=== PATIENT | male | born 1950 | race Caucasian/White ===

== ENCOUNTER 2020-04-11 09:30 | Observation (INO) ==
[2020-04-11] MEDS ORDERED: SODIUM CHLORIDE 0.9% 1,000 ML IV STA ×3 (09:54→11:15)
[2020-04-11] MEDS ORDERED: LOPERAMIDE 2 MG CAPSULE PO STA (09:54)
[2020-04-11] MEDS ORDERED: ONDANSETRON 4 MG/2 ML VIAL IV STA (09:54)
[2020-04-11 10:36] LABS: Basophils % 0.3 % (0.0-0.8); Eosinophils # 0.1 10*3/uL (0.0-0.87); Eosinophils % 0.9 % (0.00-10.9); Hematocrit 47.8 VOL% (42.0-52.0); Hemoglobin 15.5 GM/DL (14.0-18.0); Immature Granulocytes % 0.4 %; Immature Granulocytes Absolute 0.05 #; Lymphocytes # 1.3 10*3/uL (1.4-4.0); Lymphocytes % 9.7 % (21.2-54.2); Mean Corpuscular HGB Conc 32.4 GM/DL (32-36); Mean Corpuscular Volume 85.7 FL (87-102); Mean Platelet Volume 9.9 FL (9.6-12.0); Monocytes % 4.8 % (1.7-12.7); Neutrophils % 83.9 % (38.7-73.9); Platelet Count 150 T/CUMM (130-400); Red Blood Count 5.58 MC/CUMM (3.8-5.5); White Blood Count 13.3 T/CUMM (4-12)
[2020-04-11 10:55] LABS: Albumin 3.6 G/DL (3.4-5.0); Bilirubin,Total 1.1 MG/DL (0.2-1.0); Calcium 8.8 MG/DL (8.5-10.1); Osmolality,Calculated 272.2 MOS/KG (273-304); Total Protein 7.8 G/DL (6.4-8.3)
[2020-04-11] MEDS ORDERED: DEXTROSE 50% 25 GM/50 ML VIAL IV PRN (12:03)
[2020-04-11] MEDS ORDERED: ONDANSETRON 4 MG/2 ML VIAL IV PRN (12:03)
[2020-04-11] MEDS ORDERED: GLUCAGON 1 MG VIAL IM PRN (12:03)
[2020-04-11] MEDS: PANTOPRAZOLE 40 MG VIAL IV SCH (15:03)
[2020-04-11] MEDS: CIPROFLOXACIN INJ 400 MG in PREMIX 1 EACH IV SCH (15:57)
[2020-04-11 16:37] LABS: Ferritin 226.8 ng/ml (26-388)
[2020-04-11] MEDS ORDERED: CYCLOBENZAPRINE 10 MG TABLET PO PRN (16:37)
[2020-04-11] MEDS: metroNIDAZOLE INJ 500 MG in PREMIX 1 EACH IV SCH (17:35)
[2020-04-11] MEDS: SODIUM CHLORIDE 0.9% 1,000 ML IV SCH ×2 (18:37→20:55)
[2020-04-11 18:46] LABS: Bacteria,Urine Occasional /HPF (Few); Bilirubin,Urine Negative (Negative); Blood, Urine Moderate mg/dL (Negative); Glucose,Urine (UA) 50 mg/dL (Negative); Hyaline Casts,Urine 4 /LPF (0-3); Ketones,Urine Negative (Negative); Mucus,Urine Moderate /LPF (Occasional); Nitrite,Urine Negative (Negative); Protein,Urine Negative; RBC,Urine <1 /HPF (0-4); Squamous Epithelial Cell,Urine Occasional /HPF (0-10); Urine Appearance Slightly Hazy (Clear); Urine Color Yellow (Yellow); Urine Specific Gravity 1.018 (1.001-1.035); Urine Urobilinogen < 2.0 EU/DL (0.2-1.0)
[2020-04-11] MEDS: LOSARTAN 50 MG TABLET PO SCH (20:55)
[2020-04-11] MEDS: ACETAMINOPHEN 325 MG TABLET PO PRN (20:55)
[2020-04-11] MEDS: APIXABAN 5 MG TABLET PO SCH (20:55)
[2020-04-12] MEDS: metroNIDAZOLE INJ 500 MG in PREMIX 1 EACH IV SCH ×3 (01:15→17:03)
[2020-04-12] MEDS: SODIUM CHLORIDE 0.9% 1,000 ML IV SCH ×3 (04:20→21:28)
[2020-04-12] MEDS: CIPROFLOXACIN INJ 400 MG in PREMIX 1 EACH IV SCH ×2 (04:20→15:44)
[2020-04-12 06:26] LABS: Basophils % 0.2 % (0.0-0.8); Hemoglobin 13.7 GM/DL (14.0-18.0); Immature Granulocytes % 0.4 %; Immature Granulocytes Absolute 0.04 #; Lymphocytes # 0.9 10*3/uL (1.4-4.0); Lymphocytes % 8.3 % (21.2-54.2); Mean Corpuscular HGB Conc 32.6 GM/DL (32-36); Mean Corpuscular Volume 85.5 FL (87-102); Mean Platelet Volume 10.1 FL (9.6-12.0); Monocytes % 3.2 % (1.7-12.7); Neutrophils % 87.9 % (38.7-73.9); Platelet Count 117 T/CUMM (130-400); Red Blood Count 4.91 MC/CUMM (3.8-5.5); White Blood Count 10.3 T/CUMM (4-12)
[2020-04-12 06:54] LABS: Albumin 2.9 G/DL (3.4-5.0); Bilirubin,Total 0.7 MG/DL (0.2-1.0); Calcium 8.2 MG/DL (8.5-10.1); Total Protein 6.5 G/DL (6.4-8.3)
[2020-04-12] MEDS: APIXABAN 5 MG TABLET PO SCH ×2 (09:25→21:29)
[2020-04-12] MEDS: LOSARTAN 50 MG TABLET PO SCH ×2 (09:25→21:29)
[2020-04-12] MEDS: predniSONE 10 MG TABLET PO SCH (09:27)
[2020-04-12] MEDS: ACETAMINOPHEN 325 MG TABLET PO PRN (09:27)
[2020-04-12] MEDS: PANTOPRAZOLE 40 MG VIAL IV SCH (09:27)
[2020-04-13] MEDS: metroNIDAZOLE INJ 500 MG in PREMIX 1 EACH IV SCH ×2 (01:06→08:29)
[2020-04-13] MEDS: CIPROFLOXACIN INJ 400 MG in PREMIX 1 EACH IV SCH (04:32)
[2020-04-13] MEDS: SODIUM CHLORIDE 0.9% 1,000 ML IV SCH ×3 (08:28→22:30)
[2020-04-13] MEDS: PANTOPRAZOLE 40 MG VIAL IV SCH (08:29)
[2020-04-13] MEDS: LOSARTAN 50 MG TABLET PO SCH ×2 (08:29→20:34)
[2020-04-13] MEDS: APIXABAN 5 MG TABLET PO SCH (08:29)
[2020-04-13] MEDS: predniSONE 10 MG TABLET PO SCH (08:29)
[2020-04-13 09:32] LABS: Calcium 8.2 MG/DL (8.5-10.1); Osmolality,Calculated 277.7 MOS/KG (273-304)
[2020-04-13 10:33] LABS: Basophils % 0.2 % (0.0-0.8); Eosinophils # 0.1 10*3/uL (0.0-0.87); Eosinophils % 0.6 % (0.00-10.9); Hematocrit 39.6 VOL% (42.0-52.0); Hemoglobin 12.9 GM/DL (14.0-18.0); Immature Granulocytes % 0.6 %; Immature Granulocytes Absolute 0.05 #; Lymphocytes % 11.1 % (21.2-54.2); Mean Corpuscular HGB Conc 32.6 GM/DL (32-36); Mean Corpuscular Volume 84.8 FL (87-102); Mean Platelet Volume 10.1 FL (9.6-12.0); Monocytes % 5.1 % (1.7-12.7); Neutrophils % 82.4 % (38.7-73.9); Platelet Count 123 T/CUMM (130-400); Red Blood Count 4.67 MC/CUMM (3.8-5.5); Red Cell Distribution Width 14.6 % (9.3-17.3); White Blood Count 8.8 T/CUMM (4-12)
[2020-04-13] MEDS: CIPROFLOXACIN 500 MG TABLET PO SCH (20:34)
[2020-04-13] MEDS: metroNIDAZOLE 500 MG TABLET PO SCH (20:34)
[2020-04-14 08:15] VITALS: BP 140/74
[2020-04-14 08:44] LABS: Basophils % 0.2 % (0.0-0.8); Eosinophils # 0.1 10*3/uL (0.0-0.87); Hemoglobin 13.2 GM/DL (14.0-18.0); Immature Granulocytes % 0.7 %; Immature Granulocytes Absolute 0.06 #; Lymphocytes # 1.8 10*3/uL (1.4-4.0); Lymphocytes % 22.1 % (21.2-54.2); Mean Corpuscular Volume 85.3 FL (87-102); Mean Platelet Volume 9.8 FL (9.6-12.0); Platelet Count 125 T/CUMM (130-400); Red Blood Count 4.69 MC/CUMM (3.8-5.5); Red Cell Distribution Width 15.1 % (9.3-17.3); White Blood Count 8.2 T/CUMM (4-12)
[2020-04-14 09:08] LABS: Calcium 8.1 MG/DL (8.5-10.1); Osmolality,Calculated 281.4 MOS/KG (273-304)
[2020-04-14] MEDS: LOSARTAN 50 MG TABLET PO SCH (09:09)
[2020-04-14] MEDS: metroNIDAZOLE 500 MG TABLET PO SCH (09:09)
[2020-04-14] MEDS: CIPROFLOXACIN 500 MG TABLET PO SCH (09:09)
[2020-04-14] MEDS: PANTOPRAZOLE 40 MG VIAL IV SCH (09:09)
[2020-04-14] MEDS: predniSONE 10 MG TABLET PO SCH (09:09)
[2020-04-14] MEDS: SODIUM CHLORIDE 0.9% 1,000 ML IV SCH (11:41)
[2020-04-22] MEDS ORDERED: predniSONE 5 MG TABLET PO SCH (09:00)
== END 2020-04-14 11:48 | disposition home or self-care (01) ==
LOC: N.ED 09:30 → N.EDINP 09:30 → SUATTDRO 12:03 → N.TELEN 14:10
PROVIDERS: ADMIT Internal Medicine; ATTEND Internal Medicine

== ENCOUNTER 2022-07-21 00:03 | Inpatient (IN) ==
[2022-07-21 00:40] LABS: Basophils # 0.1 10*3/uL (0.0-0.2); Basophils % 0.8 % (0.0-0.8); Eosinophils # 0.2 10*3/uL (0.0-0.87); Eosinophils % 3.7 % (0.00-10.9); Hematocrit 39.4 VOL% (42.0-52.0); Hemoglobin 13.6 GM/DL (14.0-18.0); Immature Granulocytes % 0.3 %; Immature Granulocytes Absolute 0.02 #; Lymphocytes # 2.4 10*3/uL (1.4-4.0); Lymphocytes % 38.8 % (21.2-54.2); Mean Corpuscular HGB Conc 34.5 GM/DL (32-36); Mean Corpuscular Volume 83.7 FL (87-102); Mean Platelet Volume 10.5 FL (9.6-12.0); Monocytes # 0.4 10*3/uL (0.11-0.8); Monocytes % 6.4 % (1.7-12.7); Platelet Count 160 T/CUMM (130-400); Red Blood Count 4.71 MC/CUMM (3.8-5.5); Red Cell Distribution Width 14.6 % (9.3-17.3); White Blood Count 6.3 T/CUMM (4-12)
[2022-07-21 00:52] LABS: PT Patient Result 11.2 SECS (10.1-12.1); Partial Thromboplastin Time 24.6 SECS (23.7-32.9)
[2022-07-21 01:17] LABS: Albumin 3.8 G/DL (3.4-5.0); Bilirubin,Total 0.4 MG/DL (0.20-1.00); Osmolality,Calculated 287.4 MOS/KG (273-304); Potassium 3.3 MMOL/L (3.5-5.1); Total Protein 7.1 G/DL (6.4-8.2)
[2022-07-21] MEDS ORDERED: SODIUM CHLORIDE 0.9% 500 ML IV STA (01:43)
[2022-07-21] MEDS ORDERED: ONDANSETRON 4 MG/2 ML VIAL IV STA (01:43)
[2022-07-21] MEDS ORDERED: ASPIRIN 325 MG TABLET PO STA (02:09)
[2022-07-21] MEDS ORDERED: hydrALAZINE 20 MG/1 ML VIAL IV PRN (02:57)
[2022-07-21] MEDS ORDERED: traZODone 50 MG TABLET PO PRN (02:57)
[2022-07-21] MEDS ORDERED: CALCIUM CARBONATE CHEW 500 MG TABLET PO PRN (02:57)
[2022-07-21] MEDS ORDERED: MORPHINE 2 MG/1 ML SYRINGE IV PRN (02:57)
[2022-07-21] MEDS ORDERED: NICOTINE 21 MG/24 HR PATCH TRANSDERM PRN (02:57)
[2022-07-21] MEDS ORDERED: ONDANSETRON 4 MG/2 ML VIAL IV PRN (02:57)
[2022-07-21] MEDS ORDERED: ACETAMINOPHEN 325 MG TABLET PO PRN (02:57)
[2022-07-21] MEDS ORDERED: ENOXAPARIN 40 MG/0.4 ML SYRINGE SUBCUT SCH (03:00)
[2022-07-21] MEDS ORDERED: POTASSIUM CHLORIDE 20 MEQ TABLET PO ONE (03:45)
[2022-07-21 04:45] LABS: Basophils # 0.1 10*3/uL (0.0-0.2); Basophils % 0.6 % (0.0-0.8); Eosinophils % 0.4 % (0.00-10.9); Hematocrit 41.3 VOL% (42.0-52.0); Hemoglobin 13.7 GM/DL (14.0-18.0); Immature Granulocytes % 0.7 %; Immature Granulocytes Absolute 0.06 #; Lymphocytes # 1.6 10*3/uL (1.4-4.0); Lymphocytes % 17.8 % (21.2-54.2); Mean Corpuscular HGB Conc 33.2 GM/DL (32-36); Mean Corpuscular Volume 84.6 FL (87-102); Monocytes # 0.5 10*3/uL (0.11-0.8); Monocytes % 5.4 % (1.7-12.7); Neutrophils % 75.1 % (38.7-73.9); Platelet Count 166 T/CUMM (130-400); Red Blood Count 4.88 MC/CUMM (3.8-5.5); Red Cell Distribution Width 14.6 % (9.3-17.3); White Blood Count 9.1 T/CUMM (4-12)
[2022-07-21 04:59] LABS: Calcium 9.4 MG/DL (8.5-10.1); Osmolality,Calculated 282.5 MOS/KG (273-304); Potassium 4.1 MMOL/L (3.5-5.1)
[2022-07-21] MEDS: ENOXAPARIN 100 MG/ML SYRINGE SUBCUT SCH ×2 (06:29→18:18)
[2022-07-21] MEDS ORDERED: NITROGLYCERIN SL 0.4 MG TABLET SL PRN (08:17)
[2022-07-21] MEDS: NITROGLYCERIN 2% OINT 1 INCH/GM PACK TOP SCH ×3 (08:50→21:18)
[2022-07-21] MEDS ORDERED: ATORVASTATIN 40 MG TABLET PO SCH (09:00)
[2022-07-21] MEDS ORDERED: APIXABAN 5 MG TABLET PO SCH (09:00)
[2022-07-21] MEDS ORDERED: ASPIRIN 325 MG TABLET PO SCH (09:00)
[2022-07-21] MEDS: PANTOPRAZOLE 40 MG TABLET PO SCH (10:10)
[2022-07-21] MEDS: carvediloL 6.25 MG TABLET PO SCH ×2 (10:10→21:18)
[2022-07-21] MEDS: LOSARTAN 50 MG TABLET PO SCH (10:10)
[2022-07-21] MEDS: ATORVASTATIN 80 MG TABLET PO SCH (10:11)
[2022-07-21 10:17] LABS: Basophils # 0.1 10*3/uL (0.0-0.2); Eosinophils # 0.1 10*3/uL (0.0-0.87); Eosinophils % 1.4 % (0.00-10.9); Hematocrit 42.6 VOL% (42.0-52.0); Hemoglobin 14.1 GM/DL (14.0-18.0); Immature Granulocytes % 0.4 %; Immature Granulocytes Absolute 0.03 #; Lymphocytes % 25.7 % (21.2-54.2); Mean Corpuscular HGB Conc 33.1 GM/DL (32-36); Mean Corpuscular Volume 85.4 FL (87-102); Mean Platelet Volume 10.3 FL (9.6-12.0); Monocytes # 0.4 10*3/uL (0.11-0.8); Monocytes % 5.2 % (1.7-12.7); Neutrophils % 66.3 % (38.7-73.9); Platelet Count 177 T/CUMM (130-400); Red Blood Count 4.99 MC/CUMM (3.8-5.5); Red Cell Distribution Width 14.6 % (9.3-17.3); White Blood Count 7.9 T/CUMM (4-12)
[2022-07-21 10:47] LABS: % Iron Saturation 22.4 % (18-50); Ferritin 281.6 ng/mL (26-388)
[2022-07-21 10:49] LABS: Folate 12.65 NG/ML (5.38-24.0); Vitamin B12 417 PG/ML (211-911)
[2022-07-21 11:21] LABS: Sedimentation Rate-Westergren 20 MM/HR (0-20)
[2022-07-22] MEDS: NITROGLYCERIN 2% OINT 1 INCH/GM PACK TOP SCH ×4 (04:00→21:47)
[2022-07-22 04:59] LABS: Basophils # 0.1 10*3/uL (0.0-0.2); Basophils % 0.8 % (0.0-0.8); Eosinophils # 0.3 10*3/uL (0.0-0.87); Eosinophils % 3.3 % (0.00-10.9); Hematocrit 41.1 VOL% (42.0-52.0); Hemoglobin 13.3 GM/DL (14.0-18.0); Immature Granulocytes % 0.3 %; Immature Granulocytes Absolute 0.03 #; Lymphocytes # 2.6 10*3/uL (1.4-4.0); Lymphocytes % 28.7 % (21.2-54.2); Mean Corpuscular HGB Conc 32.4 GM/DL (32-36); Mean Corpuscular Volume 86.7 FL (87-102); Mean Platelet Volume 11.1 FL (9.6-12.0); Monocytes # 0.7 10*3/uL (0.11-0.8); Monocytes % 7.5 % (1.7-12.7); Neutrophils % 59.4 % (38.7-73.9); Platelet Count 167 T/CUMM (130-400); Red Blood Count 4.74 MC/CUMM (3.8-5.5); White Blood Count 9.2 T/CUMM (4-12)
[2022-07-22 05:46] LABS: Alanine Aminotransferase 28 U/L (16-61); Albumin 3.6 G/DL (3.4-5.0); Alkaline Phosphatase 47 U/L (45-117); Aspartate Amino Transferase 65 U/L (0-37); Bilirubin,Direct < 0.100 MG/DL (0.0-0.20); Bilirubin,Indirect 0.3 MG/DL (0.0-1.0)
[2022-07-22 05:58] LABS: Calcium 8.9 MG/DL (8.5-10.1); Osmolality,Calculated 283.3 MOS/KG (273-304); Potassium 4.2 MMOL/L (3.5-5.1)
[2022-07-22] MEDS: ENOXAPARIN 100 MG/ML SYRINGE SUBCUT SCH ×2 (07:29→17:02)
[2022-07-22] MEDS: ASPIRIN EC 81 MG TABLET PO SCH (08:27)
[2022-07-22] MEDS: ATORVASTATIN 80 MG TABLET PO SCH (08:27)
[2022-07-22] MEDS: LOSARTAN 50 MG TABLET PO SCH (08:27)
[2022-07-22] MEDS: PANTOPRAZOLE 40 MG TABLET PO SCH (08:27)
[2022-07-22] MEDS: carvediloL 6.25 MG TABLET PO SCH ×2 (08:34→21:46)
[2022-07-22] MEDS ORDERED: MAGNESIUM HYDROXIDE SUSP 30 ML UDCUP PO PRN (12:39)
[2022-07-22] MEDS: INSULIN REGULAR 100 UNIT/ML SUBCUT SCH ×3 (13:40→21:47)
[2022-07-22] MEDS ORDERED: POTASSIUM CHLORIDE RIDER 10 MEQ/100 ML PREMIX IV PRN (17:13)
[2022-07-22] MEDS ORDERED: MAGNESIUM SULF RIDER 2 GM/50 ML PREMIX IV PRN (17:13)
[2022-07-22] MEDS: DOCUSATE SODIUM 100 MG CAPSULE PO SCH (21:46)
[2022-07-23] MEDS: NITROGLYCERIN 2% OINT 1 INCH/GM PACK TOP SCH ×4 (03:36→20:23)
[2022-07-23 04:50] LABS: Basophils # 0.1 10*3/uL (0.0-0.2); Basophils % 0.8 % (0.0-0.8); Eosinophils # 0.3 10*3/uL (0.0-0.87); Eosinophils % 3.3 % (0.00-10.9); Hematocrit 40.6 VOL% (42.0-52.0); Hemoglobin 13.4 GM/DL (14.0-18.0); Immature Granulocytes % 0.3 %; Immature Granulocytes Absolute 0.02 #; Lymphocytes # 2.6 10*3/uL (1.4-4.0); Mean Corpuscular Volume 85.1 FL (87-102); Mean Platelet Volume 10.7 FL (9.6-12.0); Monocytes # 0.6 10*3/uL (0.11-0.8); Monocytes % 8.1 % (1.7-12.7); Neutrophils % 54.5 % (38.7-73.9); Platelet Count 165 T/CUMM (130-400); Red Blood Count 4.77 MC/CUMM (3.8-5.5); Red Cell Distribution Width 14.8 % (9.3-17.3); White Blood Count 7.9 T/CUMM (4-12)
[2022-07-23 05:16] LABS: Calcium 8.7 MG/DL (8.5-10.1); Osmolality,Calculated 279.5 MOS/KG (273-304)
[2022-07-23] MEDS ORDERED: diphenhydrAMINE CAP 50 MG CAPSULE PO ONE (08:45)
[2022-07-23] MEDS ORDERED: DIAZEPAM 5 MG TABLET PO ONE (08:45)
[2022-07-23] MEDS: PANTOPRAZOLE 40 MG TABLET PO SCH (09:00)
[2022-07-23] MEDS: DOCUSATE SODIUM 100 MG CAPSULE PO SCH ×2 (09:00→20:23)
[2022-07-23] MEDS: ATORVASTATIN 80 MG TABLET PO SCH (09:00)
[2022-07-23] MEDS: ASPIRIN EC 81 MG TABLET PO SCH (09:00)
[2022-07-23] MEDS: LOSARTAN 50 MG TABLET PO SCH (09:00)
[2022-07-23] MEDS: DAPAGLIFLOZIN 5 MG TABLET PO SCH (09:00)
[2022-07-23] MEDS: carvediloL 6.25 MG TABLET PO SCH ×2 (09:01→20:23)
[2022-07-23] MEDS: INSULIN REGULAR 100 UNIT/ML SUBCUT SCH ×4 (09:04→20:27)
[2022-07-23] MEDS: SODIUM CHLORIDE 0.45% 1,000 ML IV SCH ×2 (09:10→17:41)
[2022-07-23 10:39] LABS: Hemoglobin A1 (Alkaline) 97.9 % (96.5-98.5); Hemoglobin A2 (Alkaline) 2.1 % (1.5-3.5)
[2022-07-23] MEDS ORDERED: fentaNYL 100 MCG/2 ML VIAL ONE (13:14)
[2022-07-23] MEDS ORDERED: HEPARIN/NACL 0.9% 2 UNITS/ML 2,000 UNIT/1,000 ML BAG IV ONE (13:14)
[2022-07-23] MEDS ORDERED: MIDAZOLAM 2 MG/2 ML VIAL ONE ×2 (13:14→14:14)
[2022-07-23] MEDS ORDERED: TIROFIBAN 5,000 MCG/100 ML PREMIX IV ONE (13:40)
[2022-07-23] MEDS ORDERED: HEPARIN/NACL 0.9% 2 UNITS/ML 1,000 UNIT/500 ML BAG IV ONE (13:44)
[2022-07-23] MEDS ORDERED: BIVALIRUDIN 250 MG VIAL IV ONE (13:46)
[2022-07-23] MEDS ORDERED: ATROPINE 1 MG/10 ML SYRINGE ONE (15:01)
[2022-07-23] MEDS ORDERED: ONDANSETRON 4 MG/2 ML VIAL ONE (15:06)
[2022-07-23] MEDS ORDERED: TICAGRELOR 90 MG TABLET PO ONE (15:07)
[2022-07-23] MEDS: POLYETHYLENE GLYCOL POWDER 17 GM PACK PO SCH (17:23)
[2022-07-23] MEDS: TICAGRELOR 90 MG TABLET PO SCH (20:23)
[2022-07-24] MEDS: SODIUM CHLORIDE 0.45% 1,000 ML IV SCH ×2 (02:58→09:39)
[2022-07-24] MEDS: NITROGLYCERIN 2% OINT 1 INCH/GM PACK TOP SCH ×4 (02:59→20:46)
[2022-07-24 05:07] LABS: Basophils # 0.1 10*3/uL (0.0-0.2); Basophils % 0.6 % (0.0-0.8); Eosinophils # 0.1 10*3/uL (0.0-0.87); Eosinophils % 1.3 % (0.00-10.9); Hematocrit 39.5 VOL% (42.0-52.0); Hemoglobin 13.1 GM/DL (14.0-18.0); Immature Granulocytes % 0.4 %; Immature Granulocytes Absolute 0.04 #; Lymphocytes # 1.8 10*3/uL (1.4-4.0); Lymphocytes % 18.4 % (21.2-54.2); Mean Corpuscular HGB Conc 33.2 GM/DL (32-36); Mean Corpuscular Volume 84.6 FL (87-102); Mean Platelet Volume 10.8 FL (9.6-12.0); Monocytes # 0.8 10*3/uL (0.11-0.8); Monocytes % 8.2 % (1.7-12.7); Neutrophils % 71.1 % (38.7-73.9); Platelet Count 171 T/CUMM (130-400); Red Blood Count 4.67 MC/CUMM (3.8-5.5); Red Cell Distribution Width 14.8 % (9.3-17.3); White Blood Count 9.7 T/CUMM (4-12)
[2022-07-24 05:39] LABS: Calcium 8.3 MG/DL (8.5-10.1); Osmolality,Calculated 277.8 MOS/KG (273-304); Potassium 4.2 MMOL/L (3.5-5.1)
[2022-07-24] MEDS: INSULIN REGULAR 100 UNIT/ML SUBCUT SCH ×4 (07:48→20:46)
[2022-07-24] MEDS ORDERED: ASPIRIN 325 MG TABLET PO SCH (09:00)
[2022-07-24] MEDS: TICAGRELOR 90 MG TABLET PO SCH ×2 (09:12→20:45)
[2022-07-24] MEDS: POLYETHYLENE GLYCOL POWDER 17 GM PACK PO SCH (09:12)
[2022-07-24] MEDS: carvediloL 6.25 MG TABLET PO SCH ×2 (09:12→20:45)
[2022-07-24] MEDS: DOCUSATE SODIUM 100 MG CAPSULE PO SCH ×2 (09:12→20:45)
[2022-07-24] MEDS: DAPAGLIFLOZIN 5 MG TABLET PO SCH (09:12)
[2022-07-24] MEDS: ATORVASTATIN 80 MG TABLET PO SCH (09:12)
[2022-07-24] MEDS: PANTOPRAZOLE 40 MG TABLET PO SCH (09:13)
[2022-07-24] MEDS: LOSARTAN 50 MG TABLET PO SCH (09:17)
[2022-07-25] MEDS: NITROGLYCERIN 2% OINT 1 INCH/GM PACK TOP SCH ×4 (03:07→20:11)
[2022-07-25 04:45] LABS: Basophils % 0.4 % (0.0-0.8); Eosinophils # 0.2 10*3/uL (0.0-0.87); Eosinophils % 2.3 % (0.00-10.9); Hemoglobin 12.8 GM/DL (14.0-18.0); Immature Granulocytes % 0.4 %; Immature Granulocytes Absolute 0.04 #; Lymphocytes # 1.9 10*3/uL (1.4-4.0); Lymphocytes % 21.7 % (21.2-54.2); Mean Corpuscular HGB Conc 32.8 GM/DL (32-36); Mean Corpuscular Volume 84.8 FL (87-102); Mean Platelet Volume 10.6 FL (9.6-12.0); Monocytes # 0.7 10*3/uL (0.11-0.8); Monocytes % 8.1 % (1.7-12.7); Neutrophils % 67.1 % (38.7-73.9); Platelet Count 160 T/CUMM (130-400); Red Cell Distribution Width 14.8 % (9.3-17.3)
[2022-07-25 05:09] LABS: Calcium 8.7 MG/DL (8.5-10.1); Osmolality,Calculated 277.8 MOS/KG (273-304); Potassium 3.8 MMOL/L (3.5-5.1)
[2022-07-25] MEDS: INSULIN REGULAR 100 UNIT/ML SUBCUT SCH ×4 (07:41→20:12)
[2022-07-25] MEDS: LOSARTAN 50 MG TABLET PO SCH (08:25)
[2022-07-25] MEDS: ASPIRIN EC 81 MG TABLET PO SCH (08:26)
[2022-07-25] MEDS: DOCUSATE SODIUM 100 MG CAPSULE PO SCH ×2 (08:26→20:11)
[2022-07-25] MEDS: DAPAGLIFLOZIN 5 MG TABLET PO SCH (08:26)
[2022-07-25] MEDS: TICAGRELOR 90 MG TABLET PO SCH ×2 (08:26→20:11)
[2022-07-25] MEDS: PANTOPRAZOLE 40 MG TABLET PO SCH (08:26)
[2022-07-25] MEDS: ATORVASTATIN 80 MG TABLET PO SCH (08:26)
[2022-07-25] MEDS: carvediloL 6.25 MG TABLET PO SCH ×2 (08:27→20:11)
[2022-07-25] MEDS: POLYETHYLENE GLYCOL POWDER 17 GM PACK PO SCH ×2 (08:28→08:29)
[2022-07-26] MEDS: NITROGLYCERIN 2% OINT 1 INCH/GM PACK TOP SCH ×4 (03:45→22:07)
[2022-07-26 05:58] LABS: Basophils # 0.1 10*3/uL (0.0-0.2); Basophils % 0.7 % (0.0-0.8); Eosinophils # 0.3 10*3/uL (0.0-0.87); Hematocrit 40.5 VOL% (42.0-52.0); Hemoglobin 13.3 GM/DL (14.0-18.0); Immature Granulocytes % 0.3 %; Immature Granulocytes Absolute 0.03 #; Lymphocytes # 2.1 10*3/uL (1.4-4.0); Lymphocytes % 23.9 % (21.2-54.2); Mean Corpuscular HGB Conc 32.8 GM/DL (32-36); Mean Corpuscular Volume 85.3 FL (87-102); Mean Platelet Volume 10.8 FL (9.6-12.0); Monocytes # 0.8 10*3/uL (0.11-0.8); Monocytes % 8.8 % (1.7-12.7); Neutrophils % 63.3 % (38.7-73.9); Platelet Count 167 T/CUMM (130-400); Red Blood Count 4.75 MC/CUMM (3.8-5.5); Red Cell Distribution Width 14.6 % (9.3-17.3); White Blood Count 8.7 T/CUMM (4-12)
[2022-07-26 06:30] LABS: Calcium 9.1 MG/DL (8.5-10.1); Osmolality,Calculated 282.5 MOS/KG (273-304); Potassium 3.9 MMOL/L (3.5-5.1)
[2022-07-26] MEDS: INSULIN REGULAR 100 UNIT/ML SUBCUT SCH ×4 (08:09→22:08)
[2022-07-26] MEDS: DAPAGLIFLOZIN 5 MG TABLET PO SCH (08:10)
[2022-07-26] MEDS: LOSARTAN 50 MG TABLET PO SCH (08:10)
[2022-07-26] MEDS: TICAGRELOR 90 MG TABLET PO SCH ×2 (08:11→22:08)
[2022-07-26] MEDS: carvediloL 6.25 MG TABLET PO SCH ×2 (08:11→22:08)
[2022-07-26] MEDS: PANTOPRAZOLE 40 MG TABLET PO SCH (08:11)
[2022-07-26] MEDS: DOCUSATE SODIUM 100 MG CAPSULE PO SCH ×2 (08:11→22:08)
[2022-07-26] MEDS: ATORVASTATIN 80 MG TABLET PO SCH (08:11)
[2022-07-26] MEDS: ASPIRIN EC 81 MG TABLET PO SCH (08:11)
[2022-07-26] MEDS: POLYETHYLENE GLYCOL POWDER 17 GM PACK PO SCH (08:12)
[2022-07-26] MEDS: ENOXAPARIN 40 MG/0.4 ML SYRINGE SUBCUT SCH (14:07)
[2022-07-26] MEDS ORDERED: SODIUM CHLORIDE 0.9% 1,000 ML IV SCH (18:00)
[2022-07-27] MEDS: NITROGLYCERIN 2% OINT 1 INCH/GM PACK TOP SCH ×3 (02:52→14:11)
[2022-07-27 06:30] LABS: Basophils # 0.1 10*3/uL (0.0-0.2); Basophils % 0.6 % (0.0-0.8); Eosinophils # 0.3 10*3/uL (0.0-0.87); Eosinophils % 3.3 % (0.00-10.9); Hemoglobin 13.1 GM/DL (14.0-18.0); Immature Granulocytes % 0.2 %; Immature Granulocytes Absolute 0.02 #; Lymphocytes # 1.9 10*3/uL (1.4-4.0); Lymphocytes % 22.8 % (21.2-54.2); Mean Corpuscular HGB Conc 32.8 GM/DL (32-36); Mean Corpuscular Volume 84.7 FL (87-102); Mean Platelet Volume 11.2 FL (9.6-12.0); Monocytes # 0.6 10*3/uL (0.11-0.8); Monocytes % 6.9 % (1.7-12.7); Neutrophils % 66.2 % (38.7-73.9); Platelet Count 177 T/CUMM (130-400); Red Blood Count 4.72 MC/CUMM (3.8-5.5); Red Cell Distribution Width 14.6 % (9.3-17.3); White Blood Count 8.3 T/CUMM (4-12)
[2022-07-27 06:44] LABS: Calcium 8.7 MG/DL (8.5-10.1); Osmolality,Calculated 278.7 MOS/KG (273-304); Potassium 3.7 MMOL/L (3.5-5.1)
[2022-07-27] MEDS: INSULIN REGULAR 100 UNIT/ML SUBCUT SCH ×2 (08:40→11:44)
[2022-07-27] MEDS: DAPAGLIFLOZIN 5 MG TABLET PO SCH (09:39)
[2022-07-27] MEDS: PANTOPRAZOLE 40 MG TABLET PO SCH (09:39)
[2022-07-27] MEDS: DOCUSATE SODIUM 100 MG CAPSULE PO SCH (09:39)
[2022-07-27] MEDS: LOSARTAN 50 MG TABLET PO SCH (09:39)
[2022-07-27] MEDS: TICAGRELOR 90 MG TABLET PO SCH (09:39)
[2022-07-27] MEDS: ATORVASTATIN 80 MG TABLET PO SCH (09:39)
[2022-07-27] MEDS: ASPIRIN EC 81 MG TABLET PO SCH (09:39)
[2022-07-27] MEDS: carvediloL 6.25 MG TABLET PO SCH (09:39)
[2022-07-27] MEDS: POLYETHYLENE GLYCOL POWDER 17 GM PACK PO SCH (09:41)
[2022-07-27 11:57] VITALS: BP 115/83
[2022-07-27] MEDS: ENOXAPARIN 40 MG/0.4 ML SYRINGE SUBCUT SCH (14:11)
== END 2022-07-27 14:53 | disposition hospice, home (50) | DRG 281 ==
LOC: N.ED 00:03 → N.TELEN 00:03 → SUATTDRO 02:56 → N.TELEN 03:45 → SUATTDRO 17:29
PROVIDERS: ADMIT Hospitalist; ATTEND Internal Medicine Cardiovascular Disease
PROC: CLCCHCL (ICD-10-PCS; 2022-07-23 13:45)